=== PATIENT | female | born 1930 | race Caucasian/White ===

== ENCOUNTER 2019-10-07 15:27 | Inpatient (IN) ==
[2019-10-07] MEDS ORDERED: IPRATROPIUM/ALBUTEROL 3 ML AMPUL.NEB NEB ONE ×3 (15:46→16:05)
[2019-10-07] MEDS ORDERED: FUROSEMIDE 40 MG/4 ML VIAL IV ONE (15:57)
--- NOTE | 2019-10-07 16:01 | Emergency Department Note ---
SOB HPI - General Chief Complaint: Shortness of Breath/Dyspnea Stated Complaint: shortness of breath Time Seen by Provider: 10/07/19 15:40 Source: patient Limitations: no limitations - History of Present Illness 88-year-old female patient referred to the emergency department via her primary care provider with chief complaint of tachypnea, hypoxia, chest congestion, and possible pneumonia. Patient suffers from dementia and has considerably poor historian. Her adult children are here filling in the blanks. Her son tells me she has been ill for the last 3 days with worsening fevers and breathing issues. She has known history of COPD from former smoking. She quit approximately 2 years ago. She has known history of CHF. She has considerable edema to her lower extremities and her son is unsure if she is gained significant weight. She currently resides at any senior care facility. A review of systems was attempted but unfortunately she is unable to answer my questions. A review of her active problem list shows the following: Bedsores, COPD, colon polyp, severe mitral regurgitation, anemia, chronic kidney disease, hypothyroidism, large cell lymphoma, arthritis, hypertension, diverticulitis, cardiomyopathy, CHF, and atrial fibrillation. - Related Data Home Medications Medication Instructions Recorded Confirmed carvedilol 25 mg tablet 25 mg PO BID 06/08/18 10/07/19 levothyroxine 112 mcg tablet 112 mcg PO QDAY 06/08/18 10/07/19 losartan 25 mg tablet 25 mg PO QDAY 06/08/18 10/07/19 vit C,E,zinc,copper-ojirk3b 250 1 cap PO QDAY 06/08/18 10/07/19 mg-lutein 5 mg-zeaxanthin 1 mg capsule warfarin 3 mg tablet 3 mg PO QDAY tab 06/08/18 10/07/19 Previous Rx's Medication Instructions Recorded ipratropium-albuterol 0.5 mg-3 3 ml INHALATION Q6-8H PRN #90 ml 09/08/19 mg(2.5 mg base)/3 mL nebulization soln prednisone 20 mg tablet 20 mg PO QDAY #5 tab 09/08/19 furosemide 40 mg tablet 40 mg PO QDAY 10 Days #10 tab 09/27/19 potassium chloride 20 mEq 20 meq PO QDAY 10 Days #10 tab 09/27/19 tablet,extended release Allergies Allergy/AdvReac Type Severity Reaction Status Date / Time SCOTT Inhibitors Allergy Unknown Critical Verified 10/07/19 15:30 Review of Systems Limitations: ROS unobtainable due to patients medical condition (Patient is demented and answers typically "I do not know" when questioned.) Past Medical History - Social History smoking status: Former smoker Physical Exam Limitations: no limitations General appearance: alert, anxious, in distress (It apparent respiratory distress with tachypnea.), other (Patient appears chronically ill.) Head: atraumatic, normocephalic Eye: Present: normal appearance, PERRL, EOMI. Absent: scleral icterus, conjunctival injection ENT: Present: normal oropharynx, mucous membranes moist. Absent: nasal congestion Neck: Present: trachea midline. Absent: lymphadenopathy, thyromegaly Chest: Present: symmetric chest wall rise Respiratory: Present: respiratory distress (Considerable wheezing throughout the entire chest.), wheezes, prolonged expiratory phase, decreased breath sounds. Absent: rales/crackles, stridor Cardiovascular: Present: tachycardia, irregular rhythm, systolic murmur Abdominal: Present: soft. Absent: distention, tenderness, guarding, rebound, rigidity Extremities: Present: tenderness, normal capillary refill, pedal edema, pretibial edema. Absent: calf tenderness (Considerable +2+3 pitting edema from the feet extending to just below the knees bilateral.), cyanosis Neurological: Present: alert. Absent: oriented X3 Psychiatric: Present: agitated, anxious Skin: Present: warm, dry, pallor Course Course Narrative: Patient was brought into the emergency department and a history and physical exam was performed. Saline lock was established and laboratory studies were drawn. Portable chest x-ray was ordered and reviewed. Patient was given DuoNeb treatment x1 and Lasix 40 mg IVP. Upon reevaluation after the DuoNeb treatment she continued to have considerable wheezing throughout her chest and oxygen saturations 88-90% on room air. She was started on nasal cannula oxygen at 2-3 L/min. Second DuoNeb treatment was provided. Upon reevaluation patient is resting comfortably on the emergency room gurney. A review of her laboratory s tudies show the following: CBC platelet count 116, all others in normal limits. CMP potassium 5.2, chloride 95, BUN 39, creatinine 1.4, glucose 119, all other normal limits. Troponin less than 0.01. Procalcitonin 0.11. proBNP 3006. Lactic acid 1.0. Portable chest x-ray showed ongoing congestive heart failure. After reviewing all the data I reached out to our hospitalist (Dr. Bae) about possible admission for CHF exacerbation. Hospitalist reviewed the patient's record and requested the patient be trialed off of the oxygen. Patient was removed from oxygen her oxygen is down into 80%. She decreased further with any form of movement. Afterward, she was restarted on oxygen via nasal cannula at 1 L/min. The hospitalist was contacted once again and the case was discussed at length. At this time the hospitalist is consented to admit the patient for CHF exacerbation. All further treatment decisions and modalities to be carried out by the hospitalist. Vital Signs Temperature 97.7 F 10/07/19 15:27 Pulse Rate 109 H 10/07/19 15:27 Respiratory Rate 45 H 10/07/19 15:27 Blood Pressure 128/73 10/07/19 15:27 Pulse Oximetry (%) 92 10/07/19 15:27 Temperature 97.7 F 10/07/19 15:27 Pulse Rate 107 H 10/07/19 20:01 Respiratory Rate 25 H 10/07/19 20:01 Blood Pressure 111/63 10/07/19 20:01 Pulse Oximetry (%) 92 10/07/19 20:01 Shortness of Breath/Dyspnea - Lab Data Lab results reviewed: Yes I reviewed the patient's lab results. Result diagrams: 10/07/19 16:15 10/07/19 16:15 Lab Results 10/07/19 10/07/19 10/07/19 Range/Units 16:15 16:15 16:15 WBC 9.4 (4.50-11.00) K/mcL RBC 4.13 (3.59-5.38) M/mcL Hgb 12.7 (11.2-15.7) g/dL Hct 39.8 (34.1-44.9) % MCV 96.4 (80.0-100.0) fL MCH 30.8 (26.0-34.0) pg MCHC 31.9 (31.0-36.0) g/dL RDW 14.0 (11.5-14.5) % Plt Count 116 L (140-440) K/mcL MPV 10.9 H (7.4-10.4) fL Gran % 67.5 (38.0-78.0) % Lymph % (Auto) 19.6 (15.5-49.0) % [place] % (Auto) 11.6 (1.0-12.0) % Eos % (Auto) 0.9 (0.0-7.0) % Baso % (Auto) 0.4 (0.0-2.0) % Gran # 6.32 (1.80-8.00) K/mcL Lymph # (Auto) 1.83 (1.50-4.80) K/mcL [place] # (Auto) 1.08 H (0.10-0.90) K/mcL Eos # (Auto) 0.08 (0.00-0.70) K/mcL Baso # (Auto) 0.04 (0.00-0.30) K/mcL Total Counted Seg Neutrophils % (38-78) % Band Neutrophils % (0-10) % Lymphocytes % (15-49) % Monocytes % (Manual) (1-12) % Metamyelocytes % (0-0) % Differential Comment Reactive Lymphocytes (0-2) % Platelet Estimate (NORMAL) RBC Morphology (NORMAL) VBG Lactic Acid 1.0 (0.5-2.0) mmol/L Sodium 134 (133-145) mmol/L Potassium 5.2 H (3.3-5.1) mmol/L Chloride 95 L (96-108) mmol/L Carbon Dioxide 26 (22-30) mmol/L Anion Gap 13.0 (8-16) BUN 39 H (8-23) mg/dl Creatinine 1.4 H (0.6-1.1) mg/dl GFR Calculation 33 Glucose 119 H (70-105) mg/dL Calcium 9.4 (8.6-10.4) mg/dl Total Bilirubin 1.0 (0.0-1.0) mg/dL AST 21 (0-37) U/l ALT 11 (0-40) U/l Alkaline Phosphatase 93 (39-117) U/L Troponin T (0-0.03) ng/ml NT-Pro-B Natriuret Pep 3006.0 H (0-450) pg/ml Total Protein 6.7 (5.9-8.4) gm/dL Albumin 3.8 (3.2-5.2) gm/dL Globulin 2.9 (2.2-3.7) gm/dL Albumin/Globulin Ratio 1.3 (1.0-2.3) Procalcitonin (<0.10) ng/mL 10/07/19 10/07/19 10/07/19 Range/Units 16:15 16:15 16:15 WBC (4.50-11.00) K/mcL RBC (3.59-5.38) M/mcL Hgb (11.2-15.7) g/dL Hct (34.1-44.9) % MCV (80.0-100.0) fL MCH (26.0-34.0) pg MCHC (31.0-36.0) g/dL RDW (11.5-14.5) % Plt Count (140-440) K/mcL MPV (7.4-10.4) fL Gran % (38.0-78.0) % Lymph % (Auto) (15.5-49.0) % [place] % (Auto) (1.0-12.0) % Eos % (Auto) (0.0-7.0) % Baso % (Auto) (0.0-2.0) % Gran # (1.80-8.00) K/mcL Lymph # (Auto) (1.50-4.80) K/mcL [place] # (Auto) (0.10-0.90) K/mcL Eos # (Auto) (0.00-0.70) K/mcL Baso # (Auto) (0.00-0.30) K/mcL Total Counted 100 Seg Neutrophils % 55 (38-78) % Band Neutrophils % 22 H (0-10) % Lymphocytes % 12 L (15-49) % Monocytes % (Manual) 7 (1-12) % Metamyelocytes % 1 H (0-0) % Differential Comment Reactive Lymphocytes 3 H (0-2) % Platelet Estimate Decreased (NORMAL) RBC Morphology Normal (NORMAL) VBG Lactic Acid (0.5-2.0) mmol/L Sodium (133-145) mmol/L Potassium (3.3-5.1) mmol/L Chloride (96-108) mmol/L Carbon Dioxide (22-30) mmol/L Anion Gap (8-16) BUN (8-23) mg/dl Creatinine (0.6-1.1) mg/dl GFR Calculation Glucose (70-105) mg/dL Calcium (8.6-10.4) mg/dl Total Bilirubin (0.0-1.0) mg/dL AST (0-37) U/l ALT (0-40) U/l Alkaline Phosphatase (39-117) U/L Troponin T < 0.01 (0-0.03) ng/ml NT-Pro-B Natriuret Pep (0-450) pg/ml Total Protein (5.9-8.4) gm/dL Albumin (3.2-5.2) gm/dL Globulin (2.2-3.7) gm/dL Albumin/Globulin Ratio (1.0-2.3) Procalcitonin 0.11 (<0.10) ng/mL Arterial blood gas shows pH 7.43 PCO2 48 and PO2 of 114 on 2 L with a base excess of 5.3 - Radiology Data Radiology results reviewed: Yes I reviewed the patient's radiology results. Ordering Physician: John Sims PA-C Date of Service: 10/07/19 Procedure(s): XR chest 1V portable Accession Number(s): [id number] CLINICAL INFORMATION: 88 y/o F. SOB, wheezing, hypoxia X 3 days. COMPARISON: 10/03/2019 FINDINGS: Mild cardiomegaly unchanged. Mitral valvular prosthesis in stable position. Sternotomy changes noted. Mediastinum is unremarkable. There is mild pulmonary vascular congestion. Lungs are clear. No effusions. IMPRESSION: Mild CHF or volume overload Interpreted and Authenticated by: Shaquille Shah 10/07/19 - EKG Data EKG attestation: Yes I reviewed and interpreted this EKG., Yes There are no EKG findings of acute coronary syndrome, Yes This EKG will be read by head cager Disposition Pt seen by [employer]/PA only: Yes Clinical Impression: CHF exacerbation Qualifiers: Heart failure type: unspecified Qualified Code(s): I50.9 - Heart failure, unspecified COPD (chronic obstructive pulmonary disease) Qualifiers: COPD type: unspecified COPD Qualified Code(s): J44.9 - Chronic obstructive pulmonary disease, unspecified Atrial fibrillation Qualifiers: Atrial fibrillation type: paroxysmal Qualified Code(s): I48.0 - Paroxysmal atrial fibrillation Disposition: Xfer As Inpt ([facility]) Condition: Fair Additional Instructions: Patient is being admitted to the hospital under the care of the hospitalist (Dr. Bae). All further treatment decisions and modalities to be carried out by Dr. Bae. Referrals: Shaquille Noble DO [Primary Care Provider] - Time of Disposition: 20:59
--- NOTE | 2019-10-07 16:53 | XRay Report ---
CLINICAL INFORMATION: 88 y/o F. SOB, wheezing, hypoxia X 3 days. COMPARISON: 10/03/2019 FINDINGS: Mild cardiomegaly unchanged. Mitral valvular prosthesis in stable position. Sternotomy changes noted. Mediastinum is unremarkable. There is mild pulmonary vascular congestion. Lungs are clear. No effusions. IMPRESSION: Mild CHF or volume overload Interpreted and Authenticated by: Shaquille Shah 10/07/19
[2019-10-07 17:17] LABS: ALT/SGPT 11 U/l (0-40); AST/SGOT 21 U/l (0-37); Albumin 3.8 gm/dL (3.2-5.2); Albumin/Globulin Ratio 1.3 (1.0-2.3); Alkaline Phosphatase 93 U/L (39-117); Blood Urea Nitrogen 39 mg/dl (8-23); Calcium 9.4 mg/dl (8.6-10.4); Carbon Dioxide 26 mmol/L (22-30); Globulin 2.9 gm/dL (2.2-3.7); Glomerular Filtration Rate 33; Glucose 119 mg/dL (70-105)
[2019-10-07 17:21] LABS: Basophils # (Auto) 0.04 K/mcL (0.00-0.30); Basophils % (Auto) 0.4 % (0.0-2.0); Eosinophils # (Auto) 0.08 K/mcL (0.00-0.70); Eosinophils % (Auto) 0.9 % (0.0-7.0); Granulocytes % (Auto) 67.5 % (38.0-78.0); Hematocrit 39.8 % (34.1-44.9); Hemoglobin 12.7 g/dL (11.2-15.7); Lymphocytes # (Auto) 1.83 K/mcL (1.50-4.80); Lymphocytes % (Auto) 19.6 % (15.5-49.0); Mean Cell Volume 96.4 fL (80.0-100.0); Mean Corpuscular HGB Conc 31.9 g/dL (31.0-36.0); Mean Platelet Volume 10.9 fL (7.4-10.4); Monocytes # (Auto) 1.08 K/mcL (0.10-0.90); Monocytes % (Auto) 11.6 % (1.0-12.0); Platelet Count 116 K/mcL (140-440); RBC 4.13 M/mcL (3.59-5.38); WBC 9.4 K/mcL (4.50-11.00)
[2019-10-07 17:24] LABS: Chloride 95 mmol/L (96-108)
--- NOTE | 2019-10-07 19:44 | Emergency Department Note ---
ED Note Addendum Note Addendum: I saw this patient with John Sims PA-C. I agree with his evaluation management documentation. We discussed management of this patient and I visited with this patient as well. Patient is requiring oxygen even at rest and does not normally have that at home. She lives at [facility]. Patient will require admission as she cannot even move around without her saturations dropping into the 70s. Discussed this case with Dr. Bae, hospitalist who agreed except the patient for further care and evaluation in the hospital
[2019-10-07 20:43] LABS: Band Neutrophils % 22 % (0-10); Lymphocytes % 12 % (15-49); Metamyelocytes % 1 % (0-0); Monocytes % (Manual) 7 % (1-12); Platelet Estimate DECREASED (NORMAL); RBC Morphology NORMAL (NORMAL); Reactive Lymphocytes 3 % (0-2); Segmented Neutrophils % 55 % (38-78)
--- NOTE | 2019-10-07 20:50 | Internal Med History&Physical ---
Medical - H&P: [facility] Patient information: Note initiated : 10/07/19 at 8:46 pm Service Date, if different from initiated Date: [] Patient: Anabela Pizarro a 88 y/o F admitted on for shortness of breath. Chief Complaint: [] History of present illness: Ms. Pizarro is a 88 year old F 88-year-old female who resides at [facility] who was sent in by her PCP for congestion and increased work of breathing. Patient is a poor historian with underlying dementia and history is obtained from charts and family. In the ER she was evaluated and initially in the ER she was 88 to 90% on room air. She was given Lasix and put on oxygen 2 L with a sat of 100%. However, she continued to desat on room air with movement. Chest x-ray read as mild cardiomegaly unchanged some mild pulmonary vascular congestion which is unchanged from previous x-rays in September. She also has a history of COPD. In the ED she was wheezing on respiratory exam. Heart rate around 100 and respiratory rate in the 20s. Afebrile. Per family she has been coughing up yellow phlegm past couple days. She denies any chest pain She does have valve replacement in the past. Review of Systems: Given underlying dementia review of systems not entirely accurate. Pertinent positives as above. Denies headache/fever/chills/nause a/vomiting/chest or abdominal pain/cough/dyspnea/diarrhea. 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) CKD (chronic kidney disease), stage III (Chronic) CKD (chronic kidney disease), stage IV (Chronic) Hypothyroidism (Chronic) Daytime sleepiness (Chronic) Large cell lymphoma (Chronic) Arthritis (Chronic) Vaginal bleeding (Chronic) Diverticulitis (Chronic) Systolic/Diastolic dysfunction (Chronic) Hypertension (Chronic) Cardiomyopathy (Chronic) CHF (congestive heart failure) (Chronic) Atrial fibrillation (Chronic) Past Surgical History (Last Reviewed 07/27/19 @ 10:27 by Shaquille Real, DO) History of ankle fracture (Chronic) History of ankle surgery (Chronic) History of appendectomy (Chronic) History of biopsy (Chronic ~2010) History of carotid endarterectomy (Chronic) History of colonic polyps (Chronic) History of colonoscopy (Chronic) History of congenital mitral regurgitation (Chronic) History of coronary artery bypass graft x 6 (Chronic) Family History (Last Reviewed 07/27/19 @ 10:27 by Shaquille Noble DO) Mother Heart attack Heart disease Brother No problems noted. Daughter Migraines Digestive disorder Chemical dependency Son No problems noted. Father Heart disease Heart attack Social History (Last Updated 10/07/19 @ 15:13 by Yesenia Sousa PA-C) Resides at [facility] Ambulates with a walker and with assistance Quit smoking 20 years ago. Denies alcohol use Medical - H&P: Meds Home Medications Medication Instructions Recorded Confirmed Type carvedilol 25 mg tablet 25 mg PO BID 06/08/18 10/07/19 History levothyroxine 112 mcg tablet 112 mcg PO QDAY 06/08/18 10/07/19 History losartan 25 mg tablet 25 mg PO QDAY 06/08/18 10/07/19 History vit C,E,zinc,copper-eddfp3r 250 1 cap PO QDAY 06/08/18 10/07/19 History mg-lutein 5 mg-zeaxanthin 1 mg capsule warfarin 3 mg tablet 3 mg PO QDAY tab 06/08/18 10/07/19 History ipratropium-albuterol 0.5 mg-3 3 ml INHALATION Q6-8H PRN #90 ml 09/08/19 10/07/19 Rx mg(2.5 mg base)/3 mL nebulization soln prednisone 20 mg tablet 20 mg PO QDAY #5 tab 09/08/19 10/07/19 Rx furosemide 40 mg tablet 40 mg PO QDAY 10 Days #10 tab 09/27/19 10/07/19 Rx potassium chloride 20 mEq 20 meq PO QDAY 10 Days #10 tab 09/27/19 10/07/19 Rx tablet,extended release Allergies Allergy/AdvReac Type Severity Reaction Status Date / Time SCOTT Inhibitors Allergy Unknown Critical Verified 10/07/19 15:30 Medical - H&P: Exam - Constitutional Vitals: Temp Pulse Resp BP Pulse Ox 97.7 F 107 H 25 H 111/63 92 10/07/19 15:27 10/07/19 20:01 10/07/19 20:01 10/07/19 20:01 10/07/19 20:01 Exam: General: Alert, Awake, No acute Distress, obese Eyes/N/T: EOMI, PERRL, Head/Neck: neck supple, normocephalic atraumatic, HJR CV: irreg irreg, No murmurs, normal s1/s2 Pulm: Diminished b/l, mild wheezing and squeaks b/l Abd: soft, nontender, +BS x4 Ext: no clubbing/cyanosis , 3+ chronic b/l LE edema Neuro: Alert, no focal deficits, moves all extremities, CN 2-12 grossly intact, symmetrical strength b/l upper/lower, sensations intact b/l upper/lower Skin: warm/dry Medical - H&P: Reslt - Labs CBC & Chem 7: 10/07/19 16:15 10/07/19 16:15 Labs: Short CBC 10/07/19 Range/Units 16:15 WBC 9.4 (4.50-11.00) K/mcL Hgb 12.7 (11.2-15.7) g/dL Hct 39.8 (34.1-44.9) % Plt Count 116 L (140-440) K/mcL BMP 10/07/19 16:15 Sodium 134 Potassium 5.2 H Chloride 95 L Carbon Dioxide 26 BUN 39 H Creatinine 1.4 H Glucose 119 H Calcium 9.4 Cardiac Enzymes 10/07/19 Range/Units 16:15 Troponin T < 0.01 (0-0.03) ng/ml Liver Function 10/07/19 Range/Units 16:15 Total Bilirubin 1.0 (0.0-1.0) mg/dL AST 21 (0-37) U/l ALT 11 (0-40) U/l Alkaline Phosphatase 93 (39-117) U/L Albumin 3.8 (3.2-5.2) gm/dL Medical - H&P: A/P - Narrative A/P Narrative: A: *Acute on chronic systolic/diastolic heart failure (iCMP): -home meds BB/ARB/Lasix *URI: *Acute hypoxic respiratory failure: *AFib, chronic: on warfarn/coreg *CAD w/CABG: *COPD(not on home O2) *CKD IIIb: follows with dr linares *HTN: *Hypothyroidism: TSH *Dementia: greatly worsened since hospitalization earlier in the year at [facility] * P: -IV lasix -Monitor I's and O's and weights -Echo pending -Continue home cardiac meds -CT for further delineation of pulmonary parenchyma -resp viral panel -look for potential source of infection, hold abx for now until further w/u -IS/Acapella, home nebs -wound care -UA pending -pt/ot -ppx: Warfarin per pharmacy DNR
[2019-10-07 21:03] LABS: Thyroid Stimulating Hormone 0.81 uIU/ml (0.27-5.01)
[2019-10-07 21:25] LABS: INR 1.9 (0.9-1.1); Prothrombin Time 21.4 sec (11.9-14.5)
[2019-10-07] MEDS ORDERED: ONDANSETRON 4 MG/2 ML VIAL IV PRN (22:33)
[2019-10-07] MEDS ORDERED: SENNOSIDES 1 TABLET PO PRN (22:33)
[2019-10-07] MEDS ORDERED: MAGNESIUM SULFATE 2 GM/50 ML BAG IV PRN (22:33)
[2019-10-07] MEDS ORDERED: POLYETHYLENE GLYCOL 3350 17 GM PACKET PO PRN (22:33)
[2019-10-07] MEDS ORDERED: POTASSIUM CHLORIDE 40 MEQ in DEXTROSE 5% IN WATER 500 ML IV PRN (22:33)
[2019-10-07] MEDS ORDERED: METOPROLOL TARTRATE 5 MG/5 ML VIAL IV PRN (22:33)
[2019-10-07] MEDS ORDERED: ACETAMINOPHEN 325 MG TABLET PO PRN (22:33)
[2019-10-07] MEDS ORDERED: POTASSIUM CHLORIDE 20 MEQ TABLET PO PRN ×2 (22:33)
[2019-10-07] MEDS ORDERED: IPRATROPIUM/ALBUTEROL 3 ML AMPUL.NEB NEB PRN (22:33)
[2019-10-07] MEDS ORDERED: LABETALOL 5 MG/ML ML IV PRN (23:00)
[2019-10-08] MEDS: DOCUSATE SODIUM 100 MG CAPSULE PO SCH ×3 (00:09→22:24)
[2019-10-08] MEDS: 0.9 % SODIUM CHLORIDE 10 ML SYRINGE IV SCH ×4 (00:10→22:25)
[2019-10-08 00:30] LABS: Appearance,Urine CLEAR; Bilirubin,Urine NEG (NEG); Color,Urine STRAW; Culture Indicated,Urine NO; Glucose,Urine (UA) NEGATIVE (NEG); Ketones,Urine NEG (NEG); Leukocyte Esterase,Urine NEG /uL (NEG); Nitrate,Urine NEG (NEG); Protein,Urine NEG (NEG); Specific Gravity,Urine 1.006 (1.000-1.035); Urine Blood NEG mg/dL (<0.03); Urobilinogen,Urine NEG (NEG)
--- NOTE | 2019-10-08 06:18 | Cat Scan Report ---
CLINICAL INFORMATION: Shortness of breath COMPARISON: None TECHNIQUE: 0.625 mm axial slices were obtained from the lung apices through the bases without intravenous contrast. 2.5 mm Sagittal, coronal and axial reformatted images were processed and reviewed at bone, lung and soft tissue windows. 7 mm axial MIP images were also reconstructed to optimize pulmonary nodule detection.The exam was performed using radiation dose optimization techniques including, but not limited to, automated exposure control, adjustment of the mA and/or kV according to patient size and use of iterative reconstruction technique. FINDINGS: Mediastinal windows show moderate cardiomegaly. Mitral valve prosthesis in expected location without evidence of complication. Moderately heavy calcific plaque present in the coronary arteries. The thoracic aorta is normal diameter with scattered atherosclerotic plaque. The central pulmonary arteries are mildly enlarged with diameter of the main pulmonary artery 3.7 cm. this is suggestive of pulmonary hypertension. There is no adenopathy in the mediastinal hilar or axillary regions. The esophagus is grossly normal. The thyroid is diminutive. Pulmonary parenchymal windows show moderate bronchitis changes featuring elevated lung volumes and moderate wall thickening of the bronchi. There is minimal patchy groundglass and stranding airspace disease in the peripheral right lower lobe. This is likely fibrosis/atelectasis, but a developing infiltrate is not excluded. Minor airspace disease in the peripheral left lower lobe, right middle lobe and anterior segment right upper lobe is almost certainly fibrosis. There are no effusions. Bone windows show moderate degenerative disc disease throughout the thoracic spine with minimal chronic wedging mid lower thoracic vertebral bodies. Images through the upper abdomen show multiple small stones in the gallbladder. Visualized kidneys and adrenal glands spleen and pancreas and liver are normal. IMPRESSION: 1. Moderate bronchitis. 2. Borderline enlargement of the central pulmonary arteries suggesting mild pulmonary hypertension. 3. Heavy calcification in the coronary arteries. 4. Mild patchy groundglass and stranding airspace disease in the posterior right lower lobe. This is likely fibrosis, but developing infiltrate is not excluded. There is minor scattered fibrosis in the peripheral left lower, right middle and right upper lobes. 5. Cholelithiasis. 6. Diminutive thyroid likely due to advanced age. Please correlate with TSH to exclude hypothyroidism Interpreted and Authenticated by: Shaquille Shah 10/08/19
[2019-10-08 06:52] LABS: Hematocrit 36.6 % (34.1-44.9); Hemoglobin 11.5 g/dL (11.2-15.7); Mean Cell Volume 96.8 fL (80.0-100.0); Mean Corpuscular HGB Conc 31.4 g/dL (31.0-36.0); Mean Platelet Volume 11.1 fL (7.4-10.4); Platelet Count 100 K/mcL (140-440); RBC 3.78 M/mcL (3.59-5.38); WBC 6.8 K/mcL (4.50-11.00)
[2019-10-08 07:14] LABS: ALT/SGPT 10 U/l (0-40); AST/SGOT 18 U/l (0-37); Albumin 3.4 gm/dL (3.2-5.2); Albumin/Globulin Ratio 1.3 (1.0-2.3); Alkaline Phosphatase 88 U/L (39-117); Bilirubin,Direct 0.3 mg/dL (0.0-0.3); Bilirubin,Total 0.7 mg/dL (0.0-1.0); Blood Urea Nitrogen 38 mg/dl (8-23); Calcium 9.1 mg/dl (8.6-10.4); Carbon Dioxide 28 mmol/L (22-30); Chloride 96 mmol/L (96-108); Globulin 2.7 gm/dL (2.2-3.7); Glomerular Filtration Rate 31; Glucose 90 mg/dL (70-105); Lactate Dehydrogenase 176 U/L (94-250); Phosphorous 3.8 mg/dL (2.7-4.5); Triglycerides 60 mg/dl (<150); Uric Acid 9.6 mg/dL (2.5-8.0)
[2019-10-08 07:15] LABS: INR 1.9 (0.9-1.1); Prothrombin Time 21.3 sec (11.9-14.5)
[2019-10-08] MEDS ORDERED: methylPREDNISolone SOD SUCC 125 MG/2 ML VIAL IV ONE (07:41)
--- NOTE | 2019-10-08 07:43 | Internal Med Progress Note ---
Medical - PN: Subj Patient information: Note initiated : 10/08/19 at 7:32 am Service Date, if different from initiated Date: [] Patient: Anabela Pizarro a 88 y/o F admitted on 10/07/19 for shortness of breath. Chief Complaint: [] Interval history: Ms. Pizarro is a 88 year old F 88-year-old female who resides at [facility] who was sent in by her PCP for congestion and increased work of breathing. Patient is a poor historian with underlying dementia and history is obtained from charts and family. In the ER she was evaluated and initially in the ER she was 88 to 90% on room air. She was given Lasix and put on oxygen 2 L with a sat of 100%. However, she continued to desat on room air with movement. Chest x-ray read as mild cardiomegaly unchanged some mild pulmonary vascular congestion which is unchanged from previous x-rays in September. She also has a history of COPD. In the ED she was wheezing on respiratory exam. Heart rate around 100 and respiratory rate in the 20s. Afebrile. Per family she has been coughing up yellow phlegm past couple days. She denies any chest pain She does have valve replacement in the past. 10/08 Patient stating she does not want any more treatment. Family present. Stating she just wants to pass. Edema in the legs better today. Good saturations on 1 L nasal cannula. Patient did not cooperate with echocardiogram. CT of the chest shows pulmonary fibrosis. Occasional cough per family Review of Systems: denies headache/fever/chills/nausea/vomiting/chest or abdominal pain/dyspnea/diarrhea. Otherwise see above. - Constitutional Vitals: Vital Signs Temp Pulse Resp BP Pulse Ox 97.0 F 91 H 27 H 108/79 97 10/08/19 04:10 10/08/19 04:11 10/08/19 04:11 10/08/19 04:10 10/08/19 04:11 Period Temp Pulse Resp BP Sys/Silva Pulse Ox Last 24 Hr 97.0 F-98.1 F 29-109 20-45 83-128/52-90 87-100 Intake and Output 10/07/19 10/08/19 10/08/19 21:59 05:59 13:59 Output Total 626 Balance -626 Weight 90.718 kg 74.389 kg Intake & Output: Intake & Output 10/07/19 10/08/19 10/08/19 21:59 05:59 13:59 Output Total 626 Balance -626 Weight 90.718 kg 74.389 kg Output: Void Amount 625 # of times incontinent of urine 1 Other: Urine Appearance Clear Urine Color Bright Yellow Urine Odor Strong Exam: General: Alert, Awake, No acute Distress, obese Eyes/N/T: EOMI, Head/Neck: neck supple, CV: irreg irreg, No murmurs, normal s1/s2 Pulm: Diminished b/l, mild fine b/l wheezing/squeaks Abd: soft, nontender, +BS x4 Ext: no clubbing/cyanosis , 1-2+ chronic b/l LE edema much better Neuro: Alert, no focal deficits, moves all extremities, Skin: warm/dry Medical - PN: Obj Da - Labs CBC & Chem 7: 10/08/19 05:50 10/08/19 05:50 Labs: Abnormal Lab Results 10/08/19 10/08/19 10/08/19 05:50 05:50 05:50 Plt Count 100 L MPV 11.1 H [place] # (Auto) Band Neutrophils % Lymphocytes % Metamyelocytes % Reactive Lymphocytes PT 21.3 H INR 1.9 H Potassium Chloride BUN 38 H Creatinine 1.5 H Glucose Uric Acid 9.6 H C-Reactive Protein NT-Pro-B Natriuret Pep 10/07/19 10/07/19 10/07/19 16:15 16:15 16:15 Plt Count MPV [place] # (Auto) Band Neutrophils % 22 H Lymphocytes % 12 L Metamyelocytes % 1 H Reactive Lymphocytes 3 H PT 21.4 H INR 1.9 H Potassium Chloride BUN Creatinine Glucose Uric Acid C-Reactive Protein 8.8 H NT-Pro-B Natriuret Pep 10/07/19 10/07/19 16:15 16:15 Plt Count 116 L MPV 10.9 H [place] # (Auto) 1.08 H Band Neutrophils % Lymphocytes % Metamyelocytes % Reactive Lymphocytes PT INR Potassium 5.2 H Chloride 95 L BUN 39 H Creatinine 1.4 H Glucose 119 H Uric Acid C-Reactive Protein NT-Pro-B Natriuret Pep 3006.0 H Meds: Medications Acetaminophen (Tylenol) 650 mg PO Q6HP PRN PRN Reason: PAIN/FEVER > 101 Albuterol/Ipratropium (Duoneb) 3 ml NEB Q4HP PRN PRN Reason: Shortness Of Breath Docusate Sodium (Colace) 100 mg PO BID [facility] Last Admin: 10/08/19 00:09 Dose: Not Given Documented by: Potassium Chloride 40 meq/ (Dextrose) 520 mls @ 130 mls/hr IV UD PRN PRN Reason: Potassium < 3 Magnesium Sulfate (Magnesium Sulfate) 2 gm in 50 mls @ 50 mls/hr IV UD PRN PRN Reason: Magnesium </= 1.6 Furosemide 250 mg/ Sodium (Chloride) 250 mls @ 4 mls/hr IV Q24H [facility]; Protocol Labetalol HCl (Trandate) 0 mg IV Q2HP PRN PRN Reason: Hypertension Levothyroxine Sodium (Synthroid) 112 mcg PO ACB [facility] Metoprolol Tartrate (Lopressor) 5 mg IV Q2HP PRN PRN Reason: Tachyarrhythmias HR>110 Ondansetron HCl (Zofran) 4 mg IV Q4HP PRN PRN Reason: Nausea And Vomiting Polyethylene Glycol (Miralax) 17 gm PO DAILYP PRN PRN Reason: Constipation Potassium Chloride (Kdur) 40 meq PO UD PRN PRN Reason: Potssium is 3-3.5 Potassium Chloride (Kdur) 40 meq PO UD PRN PRN Reason: Potassium < 3 Senna (Senokot) 2 tab PO DAILYP PRN PRN Reason: Constipation Sodium Chloride (Saline Flush) 10 ml IV Q8 [facility] Last Admin: 10/08/19 05:42 Dose: 10 ml Documented by: Warfarin Sodium (Coumadin) 3 mg PO QDAY [facility] Medical - PN: A/P - Time Spent With Patient Total time spent is greater than 50% in coordination of care (as documented) at patient's floor/unit and/or counseling patient: - Narrative A/P Narrative: A: *Acute hypoxic respiratory failure: 2/2 CHF and Pulm fibrosis/COPD *Acute on chronic systolic/diastolic heart failure (iCMP): as -home meds BB/ARB/Lasix -echo unable to be done as patient would not cooperate *Pulmonary fibrosis/COPD(not on home O2) with some degree of exacerbation: -myco/Strep neg *URI: resp viral panel only with rhinovirus -CT with moderate bronchitis, fibrosis *AFib, chronic: on warfarn/coreg *CAD w/CABG: *CKD IIIb: follows with dr linares *HTN: *Hypothyroidism: TSH wnl *Dementia: greatly worsened since hospitalization earlier in the year at [facility] *Goals of care: pt states she does not want continued treatment P: -IV lasix -Monitor I's and O's and weights -elevate legs, compression stockings -Empiric Abx -hold coreg/ARB for low-normal BP and hyperkalemia -steroids/nebs -IS/Acapella, home nebs -wound care -UA pending -pt/ot -family discussion tomorrow -ppx: Warfarin per pharmacy DNR Medical - PN: Qual - VTE Deep Vein Thrombosis/Pulmonary Embolism Present on Admission: No
[2019-10-08] MEDS: LEVOTHYROXINE SODIUM 112 MCG TABLET PO SCH (07:48)
[2019-10-08] MEDS: FAMOTIDINE 20 MG TABLET PO SCH (07:55)
[2019-10-08 08:18] LABS: Band Neutrophils % 3 % (0-10); Eosinophils % (Manual) 3 % (0-7); Lymphocytes % 27 % (15-49); Monocytes % (Manual) 8 % (1-12); Platelet Estimate DECREASED (NORMAL); RBC Morphology NORMAL (NORMAL); Segmented Neutrophils % 59 % (38-78)
[2019-10-08] MEDS ORDERED: FUROSEMIDE 20 MG/2 ML VIAL IV SCH (09:00)
[2019-10-08] MEDS: FUROSEMIDE 250 MG in 0.9 % SODIUM CHLORIDE 225 ML IV SCH (09:38)
[2019-10-08] MEDS: MUPIROCIN OINT 2% 22GM NARES SCH ×2 (09:57→20:18)
[2019-10-08] MEDS: AZITHROMYCIN 500 MG in DEXTROSE 5% IN WATER 250 ML IV SCH (10:01)
[2019-10-08] MEDS: IPRATROPIUM/ALBUTEROL 3 ML AMPUL.NEB NEB SCH ×2 (10:08→17:40)
[2019-10-08] MEDS: WARFARIN 3 MG TABLET PO ONE ×2 (14:43→15:47)
[2019-10-08] MEDS ORDERED: WARFARIN 3 MG TABLET PO ONE ×2 (16:00)
[2019-10-08] MEDS: methylPREDNISolone SOD SUCC 40 MG/ML VIAL IV SCH (20:18)
[2019-10-09] MEDS: IPRATROPIUM/ALBUTEROL 3 ML AMPUL.NEB NEB SCH ×4 (01:50→18:08)
[2019-10-09 06:52] LABS: ALT/SGPT 11 U/l (0-40); AST/SGOT 18 U/l (0-37); Albumin 3.1 gm/dL (3.2-5.2); Albumin/Globulin Ratio 1.1 (1.0-2.3); Alkaline Phosphatase 80 U/L (39-117); Bilirubin,Direct < 0.2 mg/dL (0.0-0.3); Bilirubin,Total 0.3 mg/dL (0.0-1.0); Blood Urea Nitrogen 36 mg/dl (8-23); Calcium 9.1 mg/dl (8.6-10.4); Carbon Dioxide 27 mmol/L (22-30); Chloride 97 mmol/L (96-108); Globulin 2.8 gm/dL (2.2-3.7); Glomerular Filtration Rate 40; Glucose 144 mg/dL (70-105); Lactate Dehydrogenase 182 U/L (94-250); Phosphorous 3.5 mg/dL (2.7-4.5); Triglycerides 48 mg/dl (<150); Uric Acid 10.2 mg/dL (2.5-8.0)
[2019-10-09 06:53] LABS: INR 2.3 (0.9-1.1); Prothrombin Time 24.7 sec (11.9-14.5)
[2019-10-09] MEDS: LEVOTHYROXINE SODIUM 112 MCG TABLET PO SCH (08:05)
[2019-10-09] MEDS: 0.9 % SODIUM CHLORIDE 10 ML SYRINGE IV SCH ×3 (08:05→21:07)
--- NOTE | 2019-10-09 08:16 | Internal Med Progress Note ---
Medical - PN: Subj Patient information: Note initiated : 10/09/19 at 8:10 am Service Date, if different from initiated Date: [] Patient: Anabela Pizarro a 88 y/o F admitted on 10/07/19 for shortness of breath. Chief Complaint: [] Interval history: Ms. Pizarro is a 88 year old F 88-year-old female who resides at [facility] who was sent in by her PCP for congestion and increased work of breathing. Patient is a poor historian with underlying dementia and history is obtained from charts and family. In the ER she was evaluated and initially in the ER she was 88 to 90% on room air. She was given Lasix and put on oxygen 2 L with a sat of 100%. However, she continued to desat on room air with movement. Chest x-ray read as mild cardiomegaly unchanged some mild pulmonary vascular congestion which is unchanged from previous x-rays in September. She also has a history of COPD. In the ED she was wheezing on respiratory exam. Heart rate around 100 and respiratory rate in the 20s. Afebrile. Per family she has been coughing up yellow phlegm past couple days. She denies any chest pain She does have valve replacement in the past. 1/4 Patient stating she does not want any more treatment. Family present. Stating she just wants to pass. Edema in the legs better today. Good saturations on 1 L nasal cannula. Patient did not cooperate with echocardiogram. CT of the chest shows pulmonary fibrosis. Occasional cough per family 1/5 Sitting up in chair eating breakfast. No complaints. Says she does not want any treatment and would like nature to take its course. Wanting to go home. Review of Systems: denies headache/fever/chills/nausea/vomiting/chest or abdominal pain/dysp marsha/diarrhea. Otherwise see above. - Constitutional Vitals: Vital Signs Temp Pulse Resp BP Pulse Ox 97.2 F 99 H 22 112/55 97 10/08/19 16:01 10/09/19 07:56 10/09/19 04:01 10/09/19 04:01 10/09/19 07:56 Period Temp Pulse Resp BP Sys/Silva Pulse Ox Last 24 Hr 97.2 F-98 F 93-116 18-29 99-162/50-76 90-98 Intake and Output 10/08/19 10/09/19 10/09/19 21:59 05:59 13:59 Intake Total 550 0 Output Total 425 Balance 125 0 Weight 74.389 kg Intake & Output: Intake & Output 10/08/19 10/09/19 10/09/19 21:59 05:59 13:59 Intake Total 550 0 Output Total 425 Balance 125 0 Weight 74.389 kg Intake: IV 250 Zithromax 500 mg In Dextrose 5% 250 in Water 250 ml @ 250 mls/hr IV DAILY [facility] Rx#:[id number] Oral 300 0 Output: Void Amount 425 Other: Meal Dinner Percent of Meal Consumed 75% Feeding Ability Needs Supervision Urine Appearance Clear Clear Urine Color Dark Yellow Dark Yellow Urine Odor Strong Strong Stool Size Smear Moderate Stool Color Brown Brown Stool Consistency Soft Formed Formed # Voids 1 # Bowel Movements 1 Exam: General: Alert, Awake, No acute Distress, obese Eyes/N/T: EOMI, Head/Neck: neck supple, CV: irreg irreg, No murmurs, normal s1/s2 Pulm: right base rales, Diminished b/l, no wheezing today Abd: soft, nontender, +BS x4 Ext: no clubbing/cyanosis , 1+ chronic b/l LE edema continues to improve Neuro: Alert, no focal deficits, moves all extremities, Skin: warm/dry Medical - PN: Obj Da - Labs CBC & Chem 7: 10/08/19 05:50 10/09/19 05:27 Labs: Abnormal Lab Results 10/09/19 10/09/19 10/09/19 05:28 05:27 05:27 Plt Count MPV [place] # (Auto) Band Neutrophils % Lymphocytes % Metamyelocytes % Reactive Lymphocytes PT 24.7 H INR 2.3 H Potassium Chloride BUN 36 H Creatinine 1.2 H Glucose 144 H Uric Acid 10.2 H C-Reactive Protein 7.5 H NT-Pro-B Natriuret Pep Albumin 3.1 L 10/08/19 10/08/19 10/08/19 05:50 05:50 05:50 Plt Count 100 L MPV 11.1 H [place] # (Auto) Band Neutrophils % Lymphocytes % Metamyelocytes % Reactive Lymphocytes PT 21.3 H INR 1.9 H Potassium Chloride BUN 38 H Creatinine 1.5 H Glucose Uric Acid 9.6 H C-Reactive Protein NT-Pro-B Natriuret Pep Albumin 10/07/19 10/07/19 10/07/19 16:15 16:15 16:15 Plt Count MPV [place] # (Auto) Band Neutrophils % 22 H Lymphocytes % 12 L Metamyelocytes % 1 H Reactive Lymphocytes 3 H PT 21.4 H INR 1.9 H Potassium Chloride BUN Creatinine Glucose Uric Acid C-Reactive Protein 8.8 H NT-Pro-B Natriuret Pep Albumin 10/07/19 10/07/19 16:15 16:15 Plt Count 116 L MPV 10.9 H [place] # (Auto) 1.08 H Band Neutrophils % Lymphocytes % Metamyelocytes % Reactive Lymphocytes PT INR Potassium 5.2 H Chloride 95 L BUN 39 H Creatinine 1.4 H Glucose 119 H Uric Acid C-Reactive Protein NT-Pro-B Natriuret Pep 3006.0 H Albumin Meds: Medications Acetaminophen (Tylenol) 650 mg PO Q6HP PRN PRN Reason: PAIN/FEVER > 101 Albuterol/Ipratropium (Duoneb) 3 ml NEB Q4HP PRN PRN Reason: Shortness Of Breath Albuterol/Ipratropium (Duoneb) 3 ml NEB Q8H [facility] Last Admin: 10/09/19 05:38 Dose: Not Given Documented by: Docusate Sodium (Colace) 100 mg PO BID [facility] Last Admin: 10/08/19 22:24 Dose: Not Given Documented by: Famotidine (Pepcid) 20 mg PO ONCE [facility] Last Admin: 10/08/19 07:55 Dose: 20 mg Documented by: Potassium Chloride 40 meq/ (Dextrose) 520 mls @ 130 mls/hr IV UD PRN PRN Reason: Potassium < 3 Magnesium Sulfate (Magnesium Sulfate) 2 gm in 50 mls @ 50 mls/hr IV UD PRN PRN Reason: Magnesium </= 1.6 Furosemide 250 mg/ Sodium (Chloride) 250 mls @ 4 mls/hr IV Q24H [facility]; Protocol Last Admin: 10/08/19 09:38 Dose: 5 mg/hr, 5 mls/hr Documented by: Azithromycin 500 mg/ Dextrose 250 mls @ 250 mls/hr IV DAILY [facility]; Protocol Stop: 10/10/19 09:59 Last Infusion: 10/08/19 15:21 Dose: Infused Documented by: Labetalol HCl (Trandate) 0 mg IV Q2HP PRN PRN Reason: Hypertension Levothyroxine Sodium (Synthroid) 112 mcg PO ACB [facility] Last Admin: 10/08/19 07:48 Dose: 112 mcg Documented by: Methylprednisolone Sodium Succinate (Solu-Medrol) 40 mg IV Q12 [facility] Last Admin: 10/08/19 20:18 Dose: 40 mg Documented by: Metoprolol Tartrate (Lopressor) 5 mg IV Q2HP PRN PRN Reason: Tachyarrhythmias HR>110 Mupirocin (Bactroban Oint 2%) 1 dose NARES BID [facility] Last Admin: 10/08/19 20:18 Dose: 1 dose Documented by: Ondansetron HCl (Zofran) 4 mg IV Q4HP PRN PRN Reason: Nausea And Vomiting Polyethylene Glycol (Miralax) 17 gm PO DAILYP PRN PRN Reason: Constipation Potassium Chloride (Kdur) 40 meq PO UD PRN PRN Reason: Potssium is 3-3.5 Potassium Chloride (Kdur) 40 meq PO UD PRN PRN Reason: Potassium < 3 Senna (Senokot) 2 tab PO DAILYP PRN PRN Reason: Constipation Sodium Chloride (Saline Flush) 10 ml IV Q8 [facility] Last Admin: 10/08/19 22:25 Dose: 10 ml Documented by: Warfarin Sodium (Coumadin Per Pharmacy) 1 order PO UD [facility] Medical - PN: A/P - Time Spent With Patient Total time spent is greater than 50% in coordination of care (as documented) at patient's floor/unit and/or counseling patient: - Narrative A/P Narrative: A: *Acute hypoxic respiratory failure: 2/2 CHF and Pulm fibrosis/COPD -now on 0.5L NC *Acute on chronic systolic/diastolic heart failure (iCMP): as -home meds BB/ARB/Lasix -echo unable to be done as patient would not cooperate *Pulmonary fibrosis/AECOPD(not on home O2) with mild exacerbation: -myco/Strep neg *URI: resp viral panel only with rhinovirus -CT with moderate bronchitis, fibrosis *AFib, chronic: on warfarn/coreg *CAD w/CABG: *CKD IIIb: follows with dr linares *HTN: *Hypothyroidism: TSH wnl *Dementia: greatly worsened since hospitalization earlier in the year at [facility] *Goals of care: pt states she does not want continued treatment P: -IV to PO lasix -Monitor I's and O's and weights -elevate legs, compression stockings (pt intolerant to any kind of compression wrap) -echo unable to be done as patient would not cooperate -hold coreg/ARB for low-normal BP and hyperkalemia. change coreg to lopressor -steroids(wean)/nebs -Empiric Abx -IS/Acapella, home nebs -wound care -pt/ot -family discussion today -ppx: Warfarin per pharmacy DNR/DNI Medical - PN: Qual - VTE Deep Vein Thrombosis/Pulmonary Embolism Present on Admission: No
[2019-10-09] MEDS: FUROSEMIDE 250 MG in 0.9 % SODIUM CHLORIDE 225 ML IV SCH (08:26)
[2019-10-09] MEDS: methylPREDNISolone SOD SUCC 40 MG/ML VIAL IV SCH ×3 (09:27→21:06)
[2019-10-09] MEDS: FAMOTIDINE 20 MG TABLET PO SCH (09:27)
[2019-10-09] MEDS: DOCUSATE SODIUM 100 MG CAPSULE PO SCH ×2 (09:27→21:07)
[2019-10-09] MEDS: MUPIROCIN OINT 2% 22GM NARES SCH ×2 (09:49→21:07)
[2019-10-09] MEDS: METOPROLOL TARTRATE 25 MG TABLET PO SCH ×2 (10:17→21:06)
[2019-10-09] MEDS: FUROSEMIDE 40 MG TABLET PO SCH ×2 (10:19→10:46)
--- NOTE | 2019-10-09 11:26 | Discharge Summary ---
Medical - DS: Prov Patient information: Note initiated : 10/09/19 at 11:23 am Service Date, if different from initiated Date: [] Patient: Anabela Pizarro 88 y/o F admitted on 10/07/19 for shortness of breath. Chief Complaint: [] Date of admission: 10/07/19 22:29 Discharge date: 10/10/19 Primary care physician: Shaquille Noble Consults: 10/07/19 18:45 Consult to Physician [CONS] Stat Comment: Consulting Provider: Ruben Bae Reason For Exam: Physician to Consult Medical - DS: Meds - Discharge Medications Prescriptions: Metoprolol Tartrate [Lopressor] 12.5 mg PO BID #60 tab predniSONE [Prednisone] 20 mg PO QAC #1 tablet Active and Home Medications: Home Medications carvedilol 25 mg tablet 25 mg PO BID 06/08/18 [History Confirmed 10/07/19 Last Taken 10/07/19 08:00] levothyroxine 112 mcg tablet 112 mcg PO QDAY 06/08/18 [History Confirmed 10/07/19 Last Taken 10/07/19 07:00] losartan 25 mg tablet 25 mg PO QDAY 06/08/18 [History Confirmed 10/07/19 Last Taken 10/07/19 08:00] vit C,E,zinc,copper-glvxl1s 250 mg-lutein 5 mg-zeaxanthin 1 mg capsule 1 cap PO QDAY 06/08/18 [History Confirmed 10/07/19 Last Taken 10/07/19 08:00] warfarin 3 mg tablet 3 mg PO QDAY tab 06/08/18 [History Confirmed 10/07/19 Last Taken 10/06/19 19:00] ipratropium-albuterol 0.5 mg-3 mg(2.5 mg base)/3 mL nebulization soln 3 ml INHALATION Q6-8H PRN #90 ml 09/08/19 [Rx Confirmed 10/07/19 Last Taken Unknown] furosemide 40 mg tablet 40 mg PO QDAY 10 Days #10 tab 09/27/19 [Rx Confirmed 10/07/19 Last Taken 10/06/19 07:00] potassium chloride 20 mEq tablet,extended release 20 meq PO QDAY 10 Days #10 tab 09/27/19 [Rx Confirmed 10/07/19 Last Taken 10/06/19 07:00] Spironolactone [Aldactone] 25 mg PO DAILY PRN 10/07/19 [History Confirmed 10/07/19 Last Taken Unknown] Medical - DS: Hosp Hospital Course: Ms. Pizarro is a 88 year old F 88-year-old female who resides at [facility] who was sent in by her PCP for congestion and increased work of breathing. Patient is a poor historian with underlying dementia and history is obtained from charts and family. In the ER she was evaluated and initially in the ER she was 88 to 90% on room air. She was given Lasix and put on oxygen 2 L with a sat of 100%. However, she continued to desat on room air with movement. Chest x-ray read as mild cardiomegaly unchanged some mild pulmonary vascular congestion which is unchanged from previous x-rays in September. She also has a history of COPD. In the ED she was wheezing on respiratory exam. Heart rate around 100 and respiratory rate in the 20s. Afebrile. Per family she has been coughing up yellow phlegm past couple days. She denies any chest pain She does have valve replacement in the past. 1 Patient stating she does not want any more treatment. Family present. Stating she just wants to pass. Edema in the legs better today. Good saturations on 1 L nasal cannula. Patient did not cooperate with echocardiogram. CT of the chest shows pulmonary fibrosis. Occasional cough per family / Sitting up in chair eating breakfast. No complaints. Says she does not want any treatment and would like nature to take its course. Wanting to go home. 10/10 Patient doing well. Sitting up in chair in her room currently she is on room air and she ambulated well on room air. Stable for discharge. Chronic tenuous state and is high risk for readmission. A: *Acute hypoxic respiratory failure: 2/2 CHF and Pulm fibrosis/COPD *Acute on chronic systolic/diastolic heart failure (iCMP): *Pulmonary fibrosis/AECOPD(not on home O2) with mild exacerbation: *URI: resp viral panel only with rhinovirus *AFib, chronic: on warfarn/coreg *CAD w/CABG: *CKD IIIb: follows with dr linares *HTN: *Hypothyroidism: TSH wnl *Dementia: worsened since hospitalization earlier in the year at [facility] Discharge diagnosis: Acute hypoxic respiratory failure acute CHF's exacerbation COPD pulmonary f Secondary discharge diagnosis: Pulmonary fibrosis upper respiratory tract infection A. fib CAD chronic kidney disease hypertension hypothyroidism dementia - Time Spent with Patient Total time spent providing and/or coordinating discharge services: Greater than 30 minutes Medical - DS: Exam - Constitutional Vitals: Vital Signs Temp Pulse Pulse Resp BP BP Pulse Ox 10/09/19 10:12 92 H 18 10/09/19 08:24 27 H 10/09/19 08:02 97.7 F 92 H 19 91/58 94 10/09/19 07:56 99 H 97 10/09/19 04:22 93 H 97 10/09/19 04:01 95 H 22 112/55 92 10/09/19 02:00 18 90 10/09/19 00:10 21 10/09/19 00:00 106 H 22 111/73 90 10/08/19 23:30 106 H 23 H 92 10/08/19 20:33 28 H 108/72 96 10/08/19 20:00 23 H 92 10/08/19 17:40 103 H 20 10/08/19 16:01 97.2 F 96 H 26 H 116/59 97 10/08/19 14:19 99 H 23 H 98 10/08/19 14:00 99 H 23 H 99/50 98 10/08/19 12:01 98 F 112 H 25 H 113/65 95 Intake and Output 10/08/19 10/09/19 10/09/19 21:59 05:59 13:59 Intake Total 550 340 Output Total 425 250 Balance 125 90 Intake: IV 250 Zithromax 500 mg In Dextrose 5% 250 in Water 250 ml @ 250 mls/hr IV DAILY [facility] Rx#:[id number] Oral 300 340 Output: Void Amount 425 250 Other: Meal Dinner Breakfast Percent of Meal Consumed 75% 100% Feeding Ability Needs Supervision Urine Appearance Clear Clear Urine Color Dark Yellow Dark Yellow Urine Odor Strong Strong Stool Size Smear Moderate Stool Color Brown Brown Stool Consistency Soft Formed Formed # Voids 1 # Bowel Movements 1 Weight 74.389 kg Medical - DS: Data Labs on day of discharge: Labs from last 24 hours 10/09/19 10/09/19 10/09/19 05:28 05:27 05:27 PT 24.7 H INR 2.3 H Sodium 136 Potassium 4.5 Chloride 97 Carbon Dioxide 27 Anion Gap 12.0 BUN 36 H Creatinine 1.2 H GFR Calculation 40 Glucose 144 H Uric Acid 10.2 H Calcium 9.1 Phosphorus 3.5 Magnesium 2.0 Total Bilirubin 0.3 Direct Bilirubin < 0.2 GGT 22 AST 18 ALT 11 Alkaline Phosphatase 80 Lactate Dehydrogenase 182 C-Reactive Protein 7.5 H Total Protein 5.9 Albumin 3.1 L Globulin 2.8 Albumin/Globulin Ratio 1.1 Triglycerides 48 Medical - DS: A/P - Patient/Caregiver Discharge Instructions Activity: as per physical therapy Diet: Cardiac Additional Instructions: Patient is being admitted to the hospital under the care of the hospitalist (Dr. Bae). All further treatment decisions and modalities to be carried out by Dr. Bae. Prescriptions: Metoprolol Tartrate [Lopressor] 12.5 mg PO BID #60 tab - Follow up Plan Follow up with: Shaquille Noble DO [Primary Care Provider] - Disposition: Xfer SNF Prognosis: Undetermined Rehab Potential: Fair I certify that the patient requires SNF services: Yes Overall status at discharge: patient is progressing back to baseline Medical - DS: Qual - VTE Deep Vein Thrombosis/Pulmonary Embolism Present on Admission: No
[2019-10-09] MEDS: AZITHROMYCIN 500 MG in DEXTROSE 5% IN WATER 250 ML IV SCH (11:37)
[2019-10-09] MEDS ORDERED: WARFARIN 3 MG TABLET PO ONE (14:00)
[2019-10-10] MEDS: IPRATROPIUM/ALBUTEROL 3 ML AMPUL.NEB NEB SCH ×2 (01:59→10:39)
[2019-10-10] MEDS: 0.9 % SODIUM CHLORIDE 10 ML SYRINGE IV SCH (05:52)
[2019-10-10] MEDS: LEVOTHYROXINE SODIUM 112 MCG TABLET PO SCH (07:25)
[2019-10-10 07:29] LABS: INR 2.9 (0.9-1.1); Prothrombin Time 29.9 sec (11.9-14.5)
[2019-10-10] MEDS: FAMOTIDINE 20 MG TABLET PO SCH (08:00)
[2019-10-10] MEDS: DOCUSATE SODIUM 100 MG CAPSULE PO SCH (08:34)
[2019-10-10] MEDS: MUPIROCIN OINT 2% 22GM NARES SCH (08:34)
[2019-10-10] MEDS: METOPROLOL TARTRATE 25 MG TABLET PO SCH (08:34)
[2019-10-10] MEDS: FUROSEMIDE 40 MG TABLET PO SCH (08:35)
[2019-10-10] MEDS: methylPREDNISolone SOD SUCC 40 MG/ML VIAL IV SCH (08:35)
[2019-10-10] MEDS ORDERED: AZITHROMYCIN 250 MG TABLET PO ONE (08:53)
[2019-10-10] MEDS: AZITHROMYCIN 500 MG in DEXTROSE 5% IN WATER 250 ML IV SCH (08:53)
== END 2019-10-10 11:57 ==
LOC: ED 15:27 → ICU 22:29
PROVIDERS: ADMIT Internal Medicine; ATTEND Internal Medicine